=== PATIENT | male | born 1995 | race American Indian/Alaskan Native ===

== ENCOUNTER 2016-11-02 07:35 | Day surgery (SDC) | payer BC ==
[2016-11-02 08:49] VITALS: BP 120/71
[2016-11-02 09:20] LABS: Blood Urea Nitrogen 10 mg/dL (9-20)
[2016-11-02 09:23] LABS: INR 1.03 (0.87-1.13)
--- NOTE | 2016-11-02 10:33 | Cat Scan Report ---
CT neck without and with IV contrast: Patient with previously palpable mass just below the right mandibular angle not currently palpable following treatment. Transverse images were obtained from the posterior fossa to the upper thorax prior to and following IV contrast administration. Coronal and sagittal 2-D reformatted images were obtained with the contrasted scan. The oral pharynx and larynx are unremarkable. There is no cervical adenopathy. The salivary glands are unremarkable. Normal enhanced thyroid. No adenopathy identified. No significant asymmetries identified. Impression: No pathology identified.
== END 2016-11-02 10:45 | disposition home or self-care (01) ==
LOC: CT 07:35 → CATHLABREC 07:35 → EDSTATUS 08:00 → CATHLABREC 10:45
PROVIDERS: ATTEND Otolaryngology
DX: R22.1 Localized swelling, mass and lump, neck (principal); Z53.8 Procedure and treatment not carried out for other reasons
CPT/HCPCS: 36415; 70492; 82565; 84520; 85610; Q9967